=== PATIENT | female | born 1975 | race Caucasian/White ===

== ENCOUNTER 2017-11-02 22:45 | Emergency (ER) | payer OTHER ==
[2017-11-02] MEDS ORDERED: NS 2,000 ML IV ONE (22:52)
--- NOTE | 2017-11-02 22:55 | EDPHY ---
H & P Stated Complaint: after dinner/dancing pt was leaving and had multi syncopal episode Time Seen by Provider: 11/02/17 22:53 HPI/ROS: HPI CHIEF COMPLAINT: Syncope HISTORY OF PRESENT ILLNESS: 42-year-old female, presents emergency room after syncopal episode. Patient states that she had a rather busy day, she went to the gym today, did not drink much fluids, she then went out this evening dancing with her friends at the [facility], she did have 1 alcoholic beverage. She then had a syncopal episode. EMS arrived to find her with a low prep pressure 70s over 40s. This improved during transport to the emergency room. Upon arrival here she has a normal blood pressure in the low 100s. She denies hitting her head. Denies chest pain or shortness of breath, denies palpitations, denies feeling ill. She is an otherwise healthy female. States she is not drink much fluid this evening. Patient currently denies any complaints upon arrival to the emergency room states he feels much better. She did receive 500 cc of normal saline EN route by EMS. Past Medical History: Denies significant medical history Past Surgical History: Denies significant surgical history Social History: Denies daily drugs alcohol tobacco. 1 drink tonight. Family History: Noncontributory ROS REVIEW OF SYSTEMS: 10 Systems were reviewed and negative with the exception of the elements mentioned in the history of present illness. Exam Constitutional appears well nontoxic no acute distress, triage nursing summary reviewed, vital signs reviewed, awake/alert. Eyes normal conjunctivae and sclera, EOMI, PERRLA. HENT normal inspection, atraumatic, moist mucus membranes, no epistaxis, neck supple/ no meningismus, no raccoon eyes. Respiratory clear to auscultation bilaterally, normal breath sounds, no respiratory distress, no wheezing. Cardiovascular rate normal, regular rhythm, no murmur, no edema, distal pulses normal. Gastrointestinal soft, non-tender, no rebound, no guarding, normal bowel sounds, no distension, no pulsatile mass. Genitourinary no CVA tenderness. Musculoskeletal no midline vertebral tenderness, full range of motion, no calf swelling, no tenderness of extremities, no meningismus, good pulses, neurovascularly intact. Skin pink, warm, & dry, no rash, skin atraumatic. Neurologic awake, alert and oriented x 3, AAOx3, moves all 4 extremities equally, motor intact, sensory intact, CN II-XII intact, normal cerebellar, normal vision, normal speech. Psychiatric normal mood/affect. Heme/Lymph/Immune no lymphadenopathy. Differential Diagnosis: Includes but is not limited to in a particular order dehydration, electrolyte disturbance, orthostatic hypotension, orthostatic hypertension leading to syncope, cardiac arrhythmia, PE, ACS which I doubt. 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 Check orthostatics. Re-evaluation: EKG interpretation by me on record in [employer] system. Impression time of EKG 2324: Sinus rhythm rate of 73, no signs of acute ischemia no ST elevation no ST depression no T-wave abnormalities no prolonged intervals. Unremarkable nonischemic EKG. Troponin 0.01. D-dimer noted be negative. Patient here with positive orthostatic vital signs. Receiving IV fluids. Will re-evaluate shortly. ED x-ray chest one view negative for acute cardiopulmonary disease. Image interpreted by myself. 0128: Patient resting comfortably no acute distress. She is eager for discharge she states she feels well. She ambulated well throughout the emergency room without any difficulty. She would like to be discharged home. Return precautions discussed. Return if worsening symptoms including chest pain, shortness of breath, syncope. Most likely cause of syncope is orthostatic in the setting of dehydration and alcohol. Source: Patient, EMS - Medical/Surgical History Hx Asthma: No Hx Chronic Respiratory Disease: No Hx Diabetes: No Hx Cardiac Disease: No Hx Renal Disease: No Hx Cirrhosis: No Hx Alcoholism: No Hx HIV/AIDS: No Hx Splenectomy or Spleen Trauma: No Other PMH: c section - Social History Smoking Status: Never smoked Constitutional: Initial Vital Signs Temperature (C) 36.5 C 11/02/17 22:50 Heart Rate 78 11/02/17 22:50 Respiratory Rate 16 11/02/17 22:50 Blood Pressure 96/76 L 11/02/17 22:50 O2 Sat (%) 98 11/02/17 22:50 O2 Delivery Mode Room Air Allergies/Adverse Reactions: No Known Allergies Allergy (Unverified 11/02/17 22:53) Home Medications: Medication Instructions Recorded NK [No Known Home Meds] 11/02/17 Medical Decision Making - Diagnostics Imaging Results: Imaging Impressions Chest X-Ray 11/02/17 22:52 Impression: 1. No evidence of pneumonia, pleural effusion, or pneumothorax. 2. Round opacities overlying the lower lobes most likely represent nipple shadows, lateral view chest would confirm this finding. - Data Points Laboratory Results: Laboratory Results 11/02/17 22:50 11/02/17 22:50 11/02/17 11/02/17 11/02/17 23:31 22:50 22:50 WBC RBC Hgb Hct MCV MCH MCHC RDW Plt Count MPV Neut % (Auto) Lymph % (Auto) [place] % (Auto) Eos % (Auto) Baso % (Auto) Nucleat RBC Rel Count Absolute Neuts (auto) Absolute Lymphs (auto) Absolute Monos (auto) Absolute Eos (auto) Absolute Basos (auto) Absolute Nucleated RBC Immature Gran % Immature Gran # PT INR APTT D-Dimer Sodium 142 mEq/L mEq/L (135-145) Potassium 3.5 mEq/L mEq/L (3.3-5.0) Chloride 109 mEq/L mEq/L (97-110) Carbon Dioxide 20 mEq/l L mEq/l (22-31) Anion Gap 13 mEq/L mEq/L (8-16) BUN 32 mg/dL H mg/dL (7-23) Creatinine 0.8 mg/dL mg/dL (0.6-1.0) Estimated GFR > 60 Glucose 105 mg/dL H mg/dL (70-100) Calcium 9.5 mg/dL mg/dL (8.5-10.4) Magnesium 2.1 mg/dL mg/dL (1.6-2.3) Total Bilirubin 0.2 mg/dL mg/dL (0.1-1.4) Conjugated Bilirubin 0.0 mg/dL mg/dL (0.0-0.5) Unconjugated Bilirubin 0.2 mg/dL mg/dL (0.0-1.1) AST 24 IU/L IU/L (14-46) ALT 29 IU/L IU/L (9-52) Alkaline Phosphatase 51 IU/L IU/L (38-126) POC Troponin I 0.01 ng/mL ng/mL (0.00-0.08) NT-Pro-B Natriuret Pep 45 pg/mL pg/mL (0-125) Total Protein 7.6 g/dL g/dL (6.3-8.2) Albumin 4.4 g/dL g/dL (3.5-5.0) Beta HCG, Qual NEGATIVE Ethyl Alcohol 11 mg/dL H mg/dL (0-10) 11/02/17 11/02/17 22:50 22:50 WBC 10.12 10^3/uL H 10^3/uL (3.80-9.50) RBC 4.62 10^6/uL 10^6/uL (4.18-5.33) Hgb 11.6 g/dL L g/dL (12.6-16.3) Hct 36.3 % L % (38.0-47.0) MCV 78.6 fL L fL (81.5-99.8) MCH 25.1 pg L pg (27.9-34.1) MCHC 32.0 g/dL L g/dL (32.4-36.7) RDW 17.1 % H % (11.5-15.2) Plt Count 362 10^3/uL 10^3/uL (150-400) MPV 9.5 fL fL (8.7-11.7) Neut % (Auto) 47.7 % % (39.3-74.2) Lymph % (Auto) 37.5 % % (15.0-45.0) [place] % (Auto) 11.2 % % (4.5-13.0) Eos % (Auto) 2.7 % % (0.6-7.6) Baso % (Auto) 0.6 % % (0.3-1.7) Nucleat RBC Rel Count 0.0 % % (0.0-0.2) Absolute Neuts (auto) 4.83 10^3/uL 10^3/uL (1.70-6.50) Absolute Lymphs (auto) 3.80 10^3/uL H 10^3/uL (1.00-3.00) Absolute Monos (auto) 1.13 10^3/uL H 10^3/uL (0.30-0.80) Absolute Eos (auto) 0.27 10^3/uL 10^3/uL (0.03-0.40) Absolute Basos (auto) 0.06 10^3/uL 10^3/uL (0.02-0.10) Absolute Nucleated RBC 0.00 10^3/uL 10^3/uL (0-0.01) Immature Gran % 0.3 % % (0.0-1.1) Immature Gran # 0.03 10^3/uL 10^3/uL (0.00-0.10) PT 13.9 SEC SEC (12.0-15.0) INR 1.05 (0.83-1.16) APTT 23.9 SEC SEC (23.0-38.0) D-Dimer 0.45 ug/mLFEU ug/mLFEU (0.00-0.50) Sodium Potassium Chloride Carbon Dioxide Anion Gap BUN Creatinine Estimated GFR Glucose Calcium Magnesium Total Bilirubin Conjugated Bilirubin Unconjugated Bilirubin AST ALT Alkaline Phosphatase POC Troponin I NT-Pro-B Natriuret Pep Total Protein Albumin Beta HCG, Qual Ethyl Alcohol Medications Given: Discontinued Medications Sodium Chloride (Ns) 2,000 mls @ 0 mls/hr IV EDNOW ONE; Wide Open PRN Reason: Protocol Stop: 11/02/17 22:53 Last Admin: 11/02/17 22:59 Dose: 2,000 mls Point of Care Test Results: Chemistry 11/02/17 23:31 POC Troponin I 0.01 ng/mL ng/mL (0.00-0.08) Departure - Departure Disposition: Home, Routine, Self-Care Clinical Impression: Dehydration Syncope Qualifiers: Syncope type: unspecified Qualified Code(s): R55 - Syncope and collapse Condition: Good Instructions: Dehydration (ED), Syncope (ED) Additional Instructions: 1. Make sure to rest and drink lots of fluids. 2. Take it easy tomorrow. 3. Stay well-hydrated. 4. Return if worsening symptoms including passing out. Referrals: Patient,NotPresent [Unknown] - As per Instructions
[2017-11-02 23:01] LABS: PLATELET COUNT 362 10^3/uL (150-400)
[2017-11-02 23:10] LABS: INR 1.05 (0.83-1.16); PROTIME(PATIENT) 13.9 SEC (12.0-15.0)
[2017-11-03 01:34] VITALS: BP 98/68
--- NOTE | 2017-11-05 15:20 | CPEKG ---
Test Reason : OPEN Blood Pressure : / mmHG Vent. Rate : 073 BPM Atrial Rate : 073 BPM P-R Int : 132 ms QRS Dur : 087 ms QT Int : 393 ms P-R-T Axes : 066 077 041 degrees QTc Int : 433 ms Sinus rhythm Probable left atrial enlargement Confirmed by Radha Cameron ([id number]) on 11/05/2017 3:20:26 PM Referred By: Confirmed By:Radha Cameron
== END 2017-11-03 01:34 | disposition home or self-care (01) ==
DX: R55 Syncope and collapse (principal); E86.0 Dehydration
CPT/HCPCS: 84484-PO; G0480